=== PATIENT | male | born 1990 | race Caucasian/White ===

== ENCOUNTER 2019-11-07 22:29 | Outpatient (REF) | payer OTHER, SELFPAY ==
[2019-11-09 11:44] LABS: Hepatitis C Ab w Rflx HCV PCR Negative (Negative)
== END 2019-11-07 22:49 ==
LOC: NCHCN 22:29
PROVIDERS: PCP Internal Medicine; Visit Provider Nurse Practitioner Family
DX: Z11.59 Encounter for screening for other viral diseases (principal)
CPT/HCPCS: 86803